=== PATIENT | male | born 1945 | race Two or more races ===

== ENCOUNTER 2016-09-19 12:41 | Emergency (ER) | payer OTHER ==
[~2016-09-19] VITALS: Ht 167.6 cm; Wt 113.4 kg
[~2016-09-19 12:41] MED LIST: ASPI81CH59 PO; ATEN50TA PO; ATOR20TA50 PO; DEXTSYP8 PO; FLUO-125 PO; FLUT110A IN; GLIP-116 PO; LEVO-28 PO; LISI40TA PO; OMEP20CA74 PO; PIO30T PO; POT20T PO; TRIA50TA2 PO
[2016-09-19 13:53] LABS: Basophils # (auto) 0 uL; Basophils % (auto) 0.5 % (0.0-2.0); CONDITION Y; Eosinophils # (auto) 0.7 uL; Eosinophils % (auto) 10.1 % (0.0-7.0); Hematocrit 36.4 % (41.0-53.0); Hemoglobin 12.6 g/dL (13.5-17.5); Lymphocytes # (auto) 1.6 uL; Lymphocytes % (auto) 24.9 % (10.0-50.0); Mean Corpuscular Hemoglobin 30.6 pg (28.0-32.0); Mean Corpuscular Hgb Conc. 34.5 g/dL (32.0-36.0); Mean Corpuscular Volume 88.7 fL (80.0-100.0); Mean Platelet Volume 8.5 fL (7.4-10.4); Monocytes # (auto) 0.5 uL; Monocytes % (auto) 6.8 % (0.0-12.0); Neutrophils # (auto) 3.8 uL; Neutrophils % (auto) 57.7 % (37.0-80.0); Platelet Count (auto) 202 10^3/uL (140-450); Red Cell Distribution Width 12.7 % (11.6-16.0); White Blood Cell 6.6 10^3/uL (4.4-10.8)
[2016-09-19 14:02] LABS: Albumin 3.8 g/dL (3.4-5.0); BUN/Creatinine Ratio 13.7; Calcium 9.1 mg/dL (8.5-10.1); Potassium 4.1 mmol/L (3.5-5.1); Total Protein 7.6 g/dL (6.4-8.2)
[2016-09-19 16:58] LABS: Urine RBC None Seen /hpf (0 - 3)
[2016-09-19 17:31] LABS: Urine Bilirubin Negative (Negative); Urine Blood Negative /uL (Negative); Urine Color Yellow (Yellow); Urine Glucose Normal (Normal); Urine Ketone Negative (Negative); Urine Nitrite Negative (Negative); Urine Urobilinogen Normal (Negative); Urine pH 5.5 (5.0-8.0)
[2016-09-19 18:45] VITALS: BP 132/72
== END 2016-09-19 21:21 | disposition home or self-care (01) ==
LOC: ER 12:43
DX: E11.65 Type 2 diabetes mellitus with hyperglycemia (principal); E78.5 Hyperlipidemia, unspecified; I10 Essential (primary) hypertension; G89.29 Other chronic pain; M54.9 Dorsalgia, unspecified; Z88.8 Allergy status to other drugs, medicaments and biological substances; Z79.899 Other long term (current) drug therapy
CPT/HCPCS: 36415; 70450; 71010; 80053; 81001; 85025

== ENCOUNTER 2018-02-25 09:53 | Emergency (ER) | payer MEDICARE, OTHER ==
[~2018-02-25] VITALS: Ht 167.6 cm; Wt 113.4 kg
[~2018-02-25 09:53] MED LIST changes: +DEXT1SYP9 PO; -DEXTSYP8 PO
[2018-02-25 10:27] VITALS: BP 138/90
[2018-02-25] MEDS ORDERED: IBUPROFEN 800 MG TAB PO ONE (10:45)
== END 2018-02-25 10:47 | disposition home or self-care (01) ==
LOC: ER 09:53
DX: S83.92XA Sprain of unspecified site of left knee, initial encounter (principal); E11.9 Type 2 diabetes mellitus without complications; E78.5 Hyperlipidemia, unspecified; I10 Essential (primary) hypertension; Z88.8 Allergy status to other drugs, medicaments and biological substances; Z79.82 Long term (current) use of aspirin; Z79.899 Other long term (current) drug therapy; Z79.84 Long term (current) use of oral hypoglycemic drugs; X50.9XXA Other and unspecified overexertion or strenuous movements or postures, initial encounter; Y93.89 Activity, other specified; Y99.8 Other external cause status; Y92.810 Car as the place of occurrence of the external cause
CPT/HCPCS: 73562

== ENCOUNTER 2022-03-25 16:50 | Emergency (ER) | payer OTHER ==
[~2022-03-25] VITALS: Ht 167.6 cm; Wt 107.9 kg
[~2022-03-25 16:50] MED LIST changes: -GLIP-116 PO; +GLIP10TA9 PO; -LISI40TA PO; +LISI40TA11 PO
[2022-03-25 19:27] LABS: Basophils # (auto) 0.2 10 ^3/uL (0-0.2); Eosinophils # (auto) 0.2 10 ^3/uL (0-0.8); Eosinophils % (auto) 1.6 % (0.0-7.0); Hematocrit 40.5 % (41.0-53.0); Hemoglobin 13.5 g/dL (13.5-17.5); Lymphocytes % (auto) 20.2 % (10.0-50.0); Mean Corpuscular Hemoglobin 30.5 pg (28.0-32.0); Mean Corpuscular Hgb Conc. 33.3 g/dL (32.0-36.0); Mean Corpuscular Volume 91.6 fL (80.0-100.0); Monocytes # (auto) 0.5 10 ^3/uL (0-1.3); Monocytes % (auto) 5.7 % (0.0-12.0); Neutrophils # (auto) 6.8 10 ^3/uL (1.6-8.6); Neutrophils % (auto) 70.5 % (37.0-80.0); Nucleated Red Blood Cells % 0.2 %; Red Blood Cells 4.43 10^6/uL (4.5-5.90); Red Cell Distribution Width 12.8 % (11.8-14.3); White Blood Cell 9.6 10^3/uL (4.4-10.8)
[2022-03-25 21:39] VITALS: BP 122/72
== END 2022-03-25 21:40 | disposition home or self-care (01) ==
LOC: ER 16:50
DX: K92.2 Gastrointestinal hemorrhage, unspecified (principal); E11.9 Type 2 diabetes mellitus without complications; E78.5 Hyperlipidemia, unspecified; I10 Essential (primary) hypertension; Z88.1 Allergy status to other antibiotic agents; Z88.8 Allergy status to other drugs, medicaments and biological substances
CPT/HCPCS: 36415; 85025

== ENCOUNTER 2023-04-28 11:27 | Emergency (ER) | payer MEDICARE, OTHER ==
[~2023-04-28] VITALS: Ht 167.6 cm; Wt 102.3 kg
[~2023-04-28 11:27] MED LIST changes: -LEVO-28 PO; +LEVO500T91 PO; -LISI40TA11 PO; +LISI40TA16 PO; -TRIA50TA2 PO; +TRIA75TA11 PO
[2023-04-28 11:31] VITALS: BP 138/76; PULSE 82; RESP 20; O2SAT 98
[2023-04-28 12:21] LABS: Basophils # (auto) 0.1 10 ^3/uL (0-0.2); Basophils % (auto) 0.6 % (0.0-2.0); Eosinophils # (auto) 0.4 10 ^3/uL (0-0.8); Eosinophils % (auto) 2.9 % (0.0-7.0); Lymphocytes # (auto) 1.4 10 ^3/uL (0.4-5.4); Lymphocytes % (auto) 10.1 % (10.0-50.0); Mean Corpuscular Hemoglobin 29.3 pg (28.0-32.0); Mean Corpuscular Hgb Conc. 33.4 g/dL (32.0-36.0); Mean Corpuscular Volume 87.7 fL (80.0-100.0); Monocytes # (auto) 0.8 10 ^3/uL (0-1.3); Monocytes % (auto) 5.7 % (0.0-12.0); Neutrophils # (auto) 11.2 10 ^3/uL (1.6-8.6); Neutrophils % (auto) 80.7 % (37.0-80.0); Nucleated Red Blood Cells % 0.1 %; Red Blood Cells 5.13 10^6/uL (4.5-5.90); Red Cell Distribution Width 14.6 % (11.8-14.3); White Blood Cell 13.9 10^3/uL (4.4-10.8)
[2023-04-28 12:35] LABS: Alanine Aminotransferase 20 U/L (7-40); Alkaline Phosphatase 122 U/L (46-116); Anion Gap 8 (5-15); Blood Urea Nitrogen 23 mg/dL (9-23); Calcium 9.4 mg/dL (8.5-10.1); Carbon Dioxide 24 mmol/L (20-30); Chloride 107 mmol/L (98-107); Glucose 124 mg/dL (74-106); Potassium 3.7 mmol/L (3.5-5.1); Sodium 139 mmol/L (136-145)
[2023-04-28 12:36] LABS: Albumin 4.4 g/dL (3.2-4.8); Aspartate Aminotransferase 22 U/L (13-40); Bilirubin, Total 2.5 mg/dL (0.2-1.0); Total Protein 6.5 g/dL (5.7-8.2)
[2023-04-28 12:47] LABS: Lipase 48 U/L (12-53); Magnesium 1.5 mg/dL (1.6-2.6)
[2023-04-28 13:03] LABS: Urine Bacteria FEW /hpf (None Seen); Urine Blood Negative /uL (Negative); Urine Clarity HAZY (Clear); Urine Color Yellow (Yellow); Urine Hyaline Cast FEW /lpf (0 - 2); Urine Protein, UAD 1+ (Negative); Urine Specific Gravity 1.027 (1.001-1.035); Urine Urobilinogen Normal (Negative); Urine WBC 476 /hpf (0 - 3); Urine WBC Clumps PRESENT /hpf (None Seen); Urine pH 7.5 (5.0-8.0)
[2023-04-28] MEDS ORDERED: AUG875T PO (19:48)
[2023-04-28] MEDS: MAGNESIUM SULFATE 1GM/100ML 100 ML IV ONE (21:18)
[2023-04-28] MEDS: SODIUM CHLORIDE 0.9% 1,000 ML IV ONE ×2 (21:18)
[2023-04-28] MEDS: cefTRIAXone 1GM/50ML D5W 50 ML IV ONE (21:18)
== END 2023-04-28 21:18 | disposition home or self-care (01) ==
LOC: ER 11:27
DX: R19.7 Diarrhea, unspecified (principal); E83.42 Hypomagnesemia; N39.0 Urinary tract infection, site not specified; N40.0 Benign prostatic hyperplasia without lower urinary tract symptoms; I10 Essential (primary) hypertension; E11.9 Type 2 diabetes mellitus without complications; E78.5 Hyperlipidemia, unspecified; Z79.2 Long term (current) use of antibiotics; Z79.82 Long term (current) use of aspirin; Z79.899 Other long term (current) drug therapy
CPT/HCPCS: 36415; 74176; 80053; 81001; 83605; 83690; 83735; 84484; 85025; 87040

== ENCOUNTER 2024-04-17 18:23 | Emergency (ER) | payer MEDICARE, OTHER ==
[~2024-04-17] VITALS: Ht 167.6 cm; Wt 107.0 kg
[~2024-04-17 18:23] MED LIST changes: +AUG875T PO
--- NOTE | 2024-04-17 19:10 | DVH ---
CLINICAL INDICATION: FALL INJURY TECHNIQUE: XY R FOREARM XRAY Comparison: None FINDINGS: IMPRESSION: Nondisplaced fractures of distal radial and ulnar metaphysis.
--- NOTE | 2024-04-17 19:15 | DVH ---
CLINICAL INDICATION: FALL INJURY TECHNIQUE: XY R WRIST 2 VIEW XRAY Comparison: None FINDINGS/IMPRESSION: There is nondisplaced comminuted fracture of the distal radial metaphysis and radial styloid extendin g to the articular surface. There is also nondisplaced transverse fracture of the distal ulna. 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
--- NOTE | 2024-04-17 19:24 | ED.PDOC ---
Musculoskeletal HPI Comments 78 y.o male with PMHx of DM, HTN and hyperlipidemia, presents to the ED for a chief complaint of right wrist pain s/p fall today. Patient reports he was in his yard, lost balance, fell forward and extended his arm to break his fall. Patient was unable to catch himself, fell face forward onto the fence and when he attempted to get himself up, he pulled his right arm out rapidly and felt his wrist dislocate. Patient pulled his wrist and stated " I think I put my wrist back in place". Patient now presents with right wrist swelling and tenderness on palpation. No forearm pain, LOC, head pain, or dizziness reported. Reports taking Tylenol 1 g at home with improvement of symptoms. Chief Complaint: Upper Extremity Time Seen by : 18:35 [facility] Reviewed Notes: Nurses Notes, Medications, Allergies Allergies: Coded Allergies: Quinine (Verified Allergy, Unknown, 08/19/14) Home Meds Active Scripts Amoxicillin & Pot Clavulanate (AUGMENTIN TABLET) 875 Mg Tb, 875 MG PO BID for 7 Days, #14 TAB Prov:VIVIAN LEW DO 04/28/23 Levofloxacin Hemihydrate (LEVOFLOXACIN) 500 Mg Tab, 1 TAB PO DAILY, #5 TAB Prov:TEETEE GODOY MD 08/21/14 Fluticasone Propionate (FLOVENT HFA 110Mcg INH) 110 Mcg Ih, 110 MCG IN BID, #1 INH Prov:TEETEE GODOY MD 08/21/14 Dextromethorphan-Guaifenesin (Robitussin-Dm) 10 Ml Sr, 10 ML PO Q6HPRN PRN, #200 ML Prov:TEETEE GODOY MD 08/21/14 Reported Medications Omeprazole (PRILOSEC) 20 Mg Cap, 1 CAP PO DAILY, #90 CAP 1 Refill 08/19/14 Hydrochlorothiazide W/Triamter (Hctz/Triamterene) 1 Tab Tab, 1 TAB PO DAILY, TAB 08/19/14 Potassium Chloride (KLOR-CON TABLET) 20 Meq Tb, 1 TAB PO BID, #90 TAB 1 Refill 08/19/14 Glipizide (Glipizide) 10 Mg Tab, 10 MG PO BID for 30 Days, MG 2 tabs BID 08/19/14 Lisinopril (Lisinopril) 40 Mg Tab, 40 MG PO BID for 30 Days, MG 08/19/14 Pioglitazone Hydrochloride (ACTOS TABLET) 30 Mg Tb, 45 MG PO DAILY 08/19/14 Aspirin (Aspirin Low Dose) 81 Mg Chw, 1 TAB PO DAILY, #30 TAB 3 Refills 08/19/14 Fluoxetine Hcl (Fluoxetine Hcl) 20 Mg Cap, 20 MG PO DAILY for 30 Days, MG 08/19/14 Atorvastatin Calcium (ATORVASTATIN CALCIUM) 20 Mg Tab, 1 TAB PO HS, #30 TAB 5 Refills 08/19/14 Atenolol (Atenolol) 50 Mg Tab, 50 MG PO DAILY, MG 08/16/13 Information Source: Patient, Friend Mode of Arrival: Wheelchair Location: Right Extremity Location: Wrist Timing: Hours Severity: Moderate Able to Move Extremity: No Bear Weight: Limited Pain: Moderate Circumstances: Fall Onset of Symptoms: After Trauma Symptoms: Swelling, Pain DVT Risk Factors: NONE Associated signs and symptoms: Swelling Past Medical History PAST MEDICAL HISTORY: Anxiety, DM, High Lipids, HTN Surgical History (Other): back Family History Family History: Unobtainable Social History Smoker: Non-Smoker Alcohol: Denies ETOH Use Drugs: Denies Drug Use Lives In: Home Constitutional: denies: chills, diaphoresis, fatigue, fever, malaise, sweats, weakness, others EENTM: denies: blurred vision, double vision, ear bleeding, ear discharge, ear drainage, ear pain, ear ringing, eye pain, eye redness, hearing loss, mouth pain, mouth swelling, nasal discharge, nose bleeding, nose congestion, nose pain, photophobia, tearing, throat pain, throat swelling, voice changes, others Respiratory: denies: cough, hemoptysis, orthopnea, SOB at rest, shortness of breath, SOB with excertion, stridor, wheezing, others Cardiovascular: denies: chest pain, dizzy spells, diaphoresis, Dyspnea on exertion, edema, irregular heart beat, left arm pain, lightheadedness, palpitations, PND, syncope, others Gastrointestinal: denies: abdomen distended, abdominal pain, blood streaked bowels, constipated, diarrhea, dysphagia, difficulty swallowing, hematemesis, melena, nausea, poor appetite, poor fluid intake, rectal bleeding, rectal pain, vomiting, others Genitourinary: denies: burning, dysuria, flank pain, frequency, hematuria, incontinence, penile discharge, penile sore, pain, testicle pain, testicle swelling, urgency, others Neurological: denies: dizziness, fainting, headache, left sided numbness, left sided weakness, numbness, paresthesia, pre-existing deficit, right sided numbness, right sided weakness, seizure, speech problems, tingling, tremors, weakness, others Musculoskeletal: reports: others (right wrist pain ); denies: back pain, gout, joint pain, joint swelling, muscle pain, muscle stiffness, neck pain Integumetry: denies: bruises, change in color, change in hair/nails, dryness, laceration, lesions, lumps, rash, wounds, others Allergic/Immunocompromised: denies: Difficulty Healing, Frequent Infections, Hives, Itching, others Hematologic/Lymphatic: denies: anemia, blood clots, easy bleeding, easy bruising, swollen glands, others Endocrine: denies: excessive hunger, excessive sweating, excessive thirst, excessive urination, flushing, intolerance to cold, intolerance to heat, unexplained weight gain, unexplained weight loss, others Psychiatric: denies: anxiety, bipolar disorder, depression, hopeless, panic disorder, schizophrenia, sleepless, suicidal, others All Other Systems: Reviewed and Negative Physical Exam General Appearance: No Apparent Distress, Normal HEENT: Normal ENT Inspection, Pharynx Normal, TMs Normal Neck: Full Range of Motion, Non-Tender, Normal, Normal Inspection Respiratory: Chest Non-Tender, Lungs Clear, No Accessory Muscle Use, No Respiratory Distress, Normal Breath Sounds Cardiovascular: No Edema, No JVD, No Murmur, No Gallop, Normal Peripheral Pulses, Regular Rate/Rhythm Breast Exam: Deferred Gastrointestinal: No Organomegaly, Non Tender, No Pulsatile Mass, Normal Bowel Sounds, Soft Genitalia: Deferred Pelvic: Deferred Rectal: Deferred Extremities: Swelling, Tender (tenderness on palpation to the radial aspect of the right wrist with edema. No tenderness on palpation to the right forearm. No obvious deformity ) Musculoskeletal : Apperance: Normal Neurologic: Alert, manager printing II-XII nml as Tested, No Motor Deficits, Normal Affect, Normal Mood, No Sensory Deficits Cerebellar Function: Normal Reflexes: Normal Skin: Normal Color, Other (abrasion to the right proximal aspect of the forearm ) Lymphatic: No Adenopathy Was a procedure done? Was a procedure done?: No Differential Diagnosis EXT Differential Diagnosis: Fracture, Sprain, Dislocation, Contusion, Strain X-Ray, Labs, Meds, VS Vital Signs Date Time Temp Pulse Resp B/P (MAP) Pulse Ox O2 Delivery O2 Flow Rate FiO2 04/17/24 18:36 97.8 76 18 170/134 (146) [address] [address] Ph: [phone] DIAGNOSTIC IMAGING Diagnostic Imaging Report : [id number] Signed PATIENT: ANTOINETTE MCDANIELST: [id number] UNIT: [id number] : 1945 LOC: ER ROOM / BED: / AGE / SEX: 78 / M ADM STATUS: REG ER SERVICE 34 ORDERING PHYSICIAN: LAKHWINDER GODOY PAC PROCEDURE(s): RFOR - R FOREARM XRAY REASON: FALL INJURY ORDER NUMBER(s): [id number], ACCESSION NUMBER(s): [id number] CLINICAL INDICATION: FALL INJURY TECHNIQUE: XY R FOREARM XRAY Comparison: None FINDINGS: IMPRESSION: Nondisplaced fractures of distal radial and ulnar metaphysis. ATED BY: JAMES FOY MD DICTATED DATE/TIME: 04/17/241906 SIGNED BY: JAMES FOY MD SIGNED DATE/TIME: 04/17/241906 CC: [address] [address] Ph: [phone] DIAGNOSTIC IMAGING Diagnostic Imaging Report : [id number] Signed PATIENT: ANTOINETTE MCDANIELST: [id number] UNIT: [id number] : 1945 LOC: ER ROOM / BED: / AGE / SEX: 78 / M ADM STATUS: REG ER SERVICE 34 ORDERING PHYSICIAN: LAKHWINDER GODOY PAC PROCEDURE(s): RWRI2 - R WRIST 2 VIEW XRAY REASON: FALL INJURY ORDER NUMBER(s): [id number], ACCESSION NUMBER(s): [id number] CLINICAL INDICATION: FALL INJURY TECHNIQUE: XY R WRIST 2 VIEW XRAY Comparison: None FINDINGS/IMPRESSION: There is nondisplaced comminuted fracture of the distal radial metaphysis and radial styloid extending to the articular surface. There is also nondisplaced transverse fracture of the distal ulna. 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 ATED BY: JAMES FOY MD DICTATED DATE/TIME: 04/17/241912 SIGNED BY: JAMES FOY MD SIGNED DATE/TIME: 04/17/241912 CC: X-Ray, Labs, Meds, VS Comment Right Wrist XR FINDINGS/IMPRESSION: There is nondisplaced comminuted fracture of the distal radial metaphysis and radial styloid extending to the articular surface. There is also nondisplaced transverse fracture of the distal ulna. 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 Right Forearm XR IMPRESSION: Nondisplaced fractures of distal radial and ulnar metaphysis. MDM: Patient with history as above presented with right wrist pain. History obtained from patient. Patient was nontoxic, stable, afebrile, ambulatory, no acute d istress. Exam as above. Independently reviewed imaging. Right wrist x-ray showed a fracture of the distal radius and ulna, nondisplaced. Reviewed external records. All findings were discussed with the patient. Differential diagnosis considered. Overall presentation is consistent with distal radius and ulna fracture. Low suspicion for TBI, intracranial bleed, dislocation, neurovascular injury. Patient did not want any pain medication in the ED. Patient was placed in a sugar-tong splint. Advised patient to follow up with Orthopedics, and [facility] Patient was reevaluated and vital signs were reviewed. Consideration was given for admission, but the patient was stable for outpatient management. Disposition: Discussed the need to follow up diagnostics, including incidental findings. Discharged the patient with instructions to obtain outpatient follow up in 1-2 days of today's symptoms and findings, with strict return precautions if patient develops new or worsening symptoms. This medical document was created using the [employer] system. Although this document has been carefully reviewed, there may still be some phonetic and typographical errors, which are due to imperfections of the software program, and do not reflect any compromise in the patient's medical care. Time of 1ST Reevaluation: 19:37 Reevaluation 1ST: Unchanged Patient Education/Counseling: Diagnosis, Treatment, Prognosis Family Education/Counseling: Diagnosis, Treatment, Prognosis Departure 1 Departure Time of Disposition: 20:08 Impression: Primary Impression: Distal radius fracture Qualified Codes: S52.551A - Other extraarticular fracture of lower end of right radius, initial encounter for closed fracture Additional Impression: Fracture, ulna, distal Qualified Codes: S52.601A - Unspecified fracture of lower end of right ulna, initial encounter for closed fracture Disposition: 01 HOME / SELF CARE / HOMELESS Condition: Fair Critical Care Note Critical Care Time?: No Stability Stability form required: No Heart Score Heart Score: Heart Score Response (Comments) Value History N/A 0 EKG N/A 0 Age N/A 0 Risk Factors N/A 0 Troponin N/A 0 Total 0 I personally scribed for VARINDER MUKHERJEE MD ([facility]) on 04/17/24 at 19:37. Electronically submitted by Deandra Miller ([facility]). I personally scribed for VARINDER [facility]KH[facility]JEE MD [facility] on 04/17/24 at 19:45. Electronically submitted by Deandra Miller ([facility]). LAKHWINDER GODOY [facility] Apr 17, 2024 19:24 VARINDER MUKHERJEE MD Apr 17, 2024 19:37
[2024-04-17 22:27] VITALS: BP 171/80; PULSE 67; RESP 18; TEMP 98.6; O2SAT 98
[2024-04-17] MEDS: HYDROcodone-ACET 5/325MG TAB PO ONE (23:07)
== END 2024-04-17 23:31 | disposition home or self-care (01) ==
LOC: ER 18:23
DX: S52.591A Other fractures of lower end of right radius, initial encounter for closed fracture (principal); S52.691A Other fracture of lower end of right ulna, initial encounter for closed fracture; I10 Essential (primary) hypertension; E11.9 Type 2 diabetes mellitus without complications; E78.5 Hyperlipidemia, unspecified; F41.9 Anxiety disorder, unspecified; Z79.82 Long term (current) use of aspirin; Z79.84 Long term (current) use of oral hypoglycemic drugs; Z79.899 Other long term (current) drug therapy; W01.0XXA Fall on same level from slipping, tripping and stumbling without subsequent striking against object, initial encounter; Y93.89 Activity, other specified; Y92.89 Other specified places as the place of occurrence of the external cause; Y99.8 Other external cause status
CPT/HCPCS: 29125; 73090; 73100